=== PATIENT | female | born 1985 | race Caucasian/White ===

== ENCOUNTER 2023-11-03 21:16 | Emergency (ER) | payer OTHER ==
[2023-11-03] MEDS ORDERED: Mineral Oil ENEMA ONE (22:34)
== END 2023-11-03 23:10 | disposition home or self-care (01) ==
LOC: CSHERS 21:16
DX: K59.00 Constipation, unspecified (principal); F17.290 Nicotine dependence, other tobacco product, uncomplicated; F17.210 Nicotine dependence, cigarettes, uncomplicated
CPT/HCPCS: 99282

== ENCOUNTER 2024-03-27 17:44 | Emergency (ER) | payer OTHER ==
[2024-03-27 20:25] LABS: Influenza A by NAA Not Detected (NotDetected); Influenza B by NAA Not Detected (NotDetected); SARS-CoV-2 NAA Rapid Test Not Detected (NotDetected)
[2024-03-27] MEDS ORDERED: Boostrix 0.5 ML (Tdap) VIAL (>/=7 yrs of age) ONE (21:06)
== END 2024-03-27 21:35 | disposition home or self-care (01) ==
LOC: CSHERS 17:44
DX: S81.811A Laceration without foreign body, right lower leg, initial encounter (principal); J98.8 Other specified respiratory disorders; B97.89 Other viral agents as the cause of diseases classified elsewhere; F17.210 Nicotine dependence, cigarettes, uncomplicated; F17.290 Nicotine dependence, other tobacco product, uncomplicated; Z23 Encounter for immunization; W26.8XXA Contact with other sharp object(s), not elsewhere classified, initial encounter
CPT/HCPCS: 90471; 90715